=== PATIENT | male | born 1955 | race Caucasian/White ===

== ENCOUNTER 2022-05-20 17:00 | Outpatient (CLI) | payer MEDICARE, BC | END 2022-05-20 23:59 | disposition home or self-care (01) | LOC: SLEEPLAB 17:00 | PROVIDERS: ATTEND Internal Medicine Cardiovascular Disease | DX: G47.33 Obstructive sleep apnea (adult) (pediatric) (principal) | CPT/HCPCS: 95810 ==

== ENCOUNTER 2024-04-29 11:12 | Outpatient (CLI) | payer MEDICARE | END 2024-04-29 11:13 | disposition home or self-care (01) | LOC: SCSRAD 11:12 | PROVIDERS: ATTEND Physician Assistant | DX: M79.674 Pain in right toe(s) (principal); M79.89 Other specified soft tissue disorders ==